=== PATIENT | female | born 1955 | race Caucasian/White ===

== ENCOUNTER 2019-05-03 01:37 | Outpatient (CLI) | payer BC, SELFPAY ==
--- NOTE | 2019-05-03 09:00 | DI.MAMMO_ITS ---
SYMPTOM/DIAGNOSIS: SCREENING, Z12.31 MAMMOGRAMS: Mammograms were interpreted according to the usual protocol including computer analysis with CAD system, tomosynthesis and C view imaging. Comparison with prior examinations. Breast density C. No suspicious masses or microcalcifications are seen. There is no definite evidence of malignancy. IMPRESSION: Negative mammogram. Routine screening is recommended. Category 1, breast density C. MQSA ASSESSMENT OF FINDINGS: Negative. Category 1. Patient will receive a letter notifying them of these results. Bi-RADS category C. The breasts are heterogeneously dense, which may obscure small masses.
== END 2019-05-03 01:57 ==
PROVIDERS: PCP Family Medicine; Visit Provider Nurse Practitioner Family
DX: Z12.31 Encounter for screening mammogram for malignant neoplasm of breast (principal)
CPT/HCPCS: 77063; 77067

== ENCOUNTER 2020-05-08 01:03 | Outpatient (CLI) | payer BC, SELFPAY ==
--- NOTE | 2020-05-08 15:00 | DI.MAMMO_ITS ---
EXAM: MAMMO SCREENING CLINICAL HISTORY: screening TECHNIQUE: Mammograms were interpreted according to the usual protocol including computer analysis w [facility] CAD system, tomosynthesis and C-view imaging. COMPARISON: 2010 through 2018 FINDINGS: The breasts are composed of heterogeneously dense fibroglandular densities, Breast Density category C . No suspicious masses or suspicious microcalcifications are seen. No skin thickening or abnormal axillary lymph nodes are seen. There has been no significant change from prior exams. IMPRESSION: BI-RADS Category 1: Negative mammogram. Yearly screening mammography is recommended. Breast density category C, heterogeneously dense tissue which decreases the sensitivity of the mammog chelle. The mammogram demonstrates the patient's breast tissue is dense. Dense breast tissue is very common a nd is not abnormal but dense breast tissue can make it harder to find cancer on a mammogram. Also, de nse breast tissue may increase breast cancer risk. This information about the result of the mammogram report was provided to the patient to raise their awareness. Use this report when you speak with the patient about their risks for breast cancer, which includes their family history. At that time, you may recommend additional screening tests (Ultrasound or MRI) as they might be useful based on their r isk. A negative radiographic report should not delay biopsy if a dominant or clinically suspicious mass is present. Up to ten percent of cancers are not identified on mammography. A negative report may reinforce clinical impression. Adenosis and dense breasts may obscure an underlying neoplasm. False positive reports average 6 to 10%.
== END 2020-05-08 01:23 ==
PROVIDERS: PCP Family Medicine; Visit Provider Nurse Practitioner Family
DX: Z12.31 Encounter for screening mammogram for malignant neoplasm of breast (principal)
CPT/HCPCS: 77063; 77067

== ENCOUNTER 2020-06-02 09:35 | Day surgery (SDC) | payer BC, SELFPAY ==
[2020-06-02 09:42] VITALS: BP 124/68; PULSE 59; RESP 18; TEMP 36.8; O2SAT 99
[2020-06-02] MEDS: Lactated Ringers 1,000 ML 80 ML IV (10:10)
--- NOTE | 2020-06-02 10:59 | W.PM.DSUDISC ---
Discharge Plan Disposition Patient Disposition: HOME Condition: Good Discharge Details Reason For Visit: Colonoscopy Attending Provider: Oralia Wright Primary Care Provider: Henrik Dupree Home Meds and New Rx's Prescriptions: Continued acetaminophen [Tylenol] 325 MG tablet 650 mg PO Q6H PRN RF: 0 calcium carbonate-vitamin D3 [Caltrate with Vitamin D3] 1 EACH tablet 1 ea PO DAILY RF: 0 CENTRUM SILVER TABLET 1 EACH tablet 1 ea PO DAILY RF: 0 citalopram 20 MG tablet 40 mg PO DAILY RF: 0 Cbd Oil 5 drp PO DAILY PRNRF: 0 Discharge Instructions Additional Instructions: Findings: One small polyp was biopsied. My office will contact you with biopsy results. Follow up: Plan for a colonoscopy in 5 years. Please call if you develop: fevers >101.5 Nausea or Vomiting Abdominal pain that is not transient DAY SURGERY UNIT POST COLONOSCOPY INSTRUCTIONS 1. Because there will be medication in your system for the next 24 hours, you may feel a little sleepy. Your coordination will be affected. Therefore: a. Do not drive or operate dangerous equipment for 24 hours. b. Do not drink alcohol beverages for 24 hours (not even beer). c. Plan to go home and rest for the day. 2. Generally there are no restrictions on your activity after a day or so has gone by, but you may feel a bit fatigued for a few days. 3 After you arrive home you may have a light meal and return to a normal diet as you can tolerate it without feeling sick to your stomach. 4. After surgery, you may feel pain or discomfort. This should be only transient, but if it persists please contact your doctor. 5. If there are any questions regarding the findings of your procedure, please feel free to contact your doctor. 6. If you are unable to contact your doctor with a problem, contact the hospital at [phone]. 7. Continue all your regular medications unless directed otherwise. I understand the above instructions and have no questions. Signature of Patient or Responsible Adult Escort Date/Time Name of Responsible Adult Escort Signature of Nurse Date/Time Activity:: Activity as Tolerated Diet:: As Tolerated Discharge Orders Discharge Orders: Discharge Order (Routine); Ordered 06/02/20 Ordered By: Oralia Wright DS: Diagnosis Discharge Diagnosis (1) Colon polyp: Status: Acute
--- NOTE | 2020-06-02 11:30 | BOWEL_PTH ---
PATIENT: Princess Da Silva LOC: [facility] U#:[id number] AGE/SX: 64/F ROOM: RE06/02/[address]: Oralia Wright MD : [id number] BED: DIS: 06/02/2020 SPEC #: [id number] RECD: 06/02/20 12:22 STATUS: CAITIE REQ #: [id number] FRAN: 06/02/20 11:[address]: Oralia Wright DEPT: Surgical Specimen RECD BY: Khushbu Delacruz ENTERED: 06/02/20 12:23 SP TYPE: Bowel OTHR DR: Henrik Dupree Tissues: 1 - BIOPSY BOWEL 2 - BIOPSY BOWEL Procedures: GROSS AND MICRO LEVEL 4 Comments: [id number]
--- NOTE | 2020-06-02 12:06 | W.COLOREPORT ---
Date of service: 06/02/20 Time of Service: 12:06 Colonoscopy Report Date of procedure: 06/02/20 Pre-op diagnosis general: History of polyps Post-op diagnosis procedure note: other (Ascending colon polyp, possible polyp at 20 cm) Procedure: Colonoscopy with cold forceps polypectomy and biopsy Surgeon: Oralia Wright Anesthesia proc note operative: MAC Indications: This patient had colon polyps in 2016 and presents for routine follow up. She is asymptomatic and has no FH colon cancer. Procedure Description: The patient was placed in the left [place] position. Propofol was titrated to sedation. Digital rectal examination revealed no abnormalities. The scope was advanced to the cecum without difficulty. The ileocecal valve and appendiceal orifice were clearly identified. The prep was good. The scope was slowly withdrawn with a diminuitive polyp removed from the ascending colon with the cold forceps. The ascending, transverse, descending colon were normal. In the distal sigmoid colon a thick fold vs polyp was identified. This had a hyperplastic appearance and was biopsies. The rectum was normal including on retroflexed view. The patient tolerated the procedure well and was stable to recovery. She was noted to have an episode of bradycardia during withdrawal of the scope which was attributed to vagal stimulation. Plan for colonoscopy in 5 years or sooner if symptoms indicate.
[2020-06-02 12:29] VITALS: BP 113/64; PULSE 55; RESP 16; TEMP 36.9; O2SAT 98
== END 2020-06-02 12:45 | disposition home or self-care (01) ==
PROVIDERS: PCP Family Medicine; Visit Provider Surgery
PROC: 0DJD8ZZ Inspection of Lower Intestinal Tract, Via Natural or Artificial Opening Endoscopic (ICD-10-PCS; CPT 45378; principal; 2020-06-02 12:15)
DX: Z12.11 Encounter for screening for malignant neoplasm of colon (principal); Z86.010 Personal history of colon polyps; D12.4 Benign neoplasm of descending colon; K63.5 Polyp of colon; R00.1 Bradycardia, unspecified
CPT/HCPCS: 45380; 88305; J2001

== ENCOUNTER → 2025-02-17 08:12 | Outpatient (BNVA) | payer MEDICARE, SELFPAY | PROVIDERS: PCP Nurse Practitioner Family; Referring Provider Nurse Practitioner Family; Visit Provider Student in an Organized Health Care Education/Training Program | DX: M17.12 Unilateral primary osteoarthritis, left knee (principal); M94.262 Chondromalacia, left knee; M25.462 Effusion, left knee; M23.92 Unspecified internal derangement of left knee | CPT/HCPCS: 20610; 99203; J1010 ==

== ENCOUNTER 2025-02-17 09:24 | Outpatient (REF) | payer MEDICARE, SELFPAY ==
[2025-02-17 09:56] LABS: Clarity Cloudy; Crystals (BF) No Crystals seen
[2025-02-17 10:01] LABS: Mononuclear Cells 5 %; Polynuclear Cells 95 %
== END 2025-02-17 09:25 | disposition home or self-care (01) ==
LOC: LBN 09:24
PROVIDERS: PCP Nurse Practitioner Family; Visit Provider Student in an Organized Health Care Education/Training Program
DX: M17.12 Unilateral primary osteoarthritis, left knee (principal); M25.562 Pain in left knee; M94.262 Chondromalacia, left knee; M25.462 Effusion, left knee; M23.92 Unspecified internal derangement of left knee
CPT/HCPCS: 87070; 87205; 89051; 89060

== ENCOUNTER 2025-03-30 12:10 | Outpatient (CLI) | payer MEDICARE, SELFPAY ==
[2025-03-30 12:27] LABS: ESR 10 mm/hr (0-30)
[2025-03-30 12:40] LABS: C-Reactive Protein 1.17 mg/dL (<or=0.5)
[2025-03-31 18:02] LABS: Rheumatoid Factor <8.6 IU/mL (<12.0)
[2025-04-01 09:27] LABS: Lyme Ab w Rflx to Lyme Confirm Negative (Negative)
[2025-04-01 13:30] LABS: ANA Interpretation Positive (Negative); ANA Titer Pattern 1:160 Homogeneous
[2025-04-03 15:00] LABS: Anaplasma phagocytophilum Negative (Negative); B. miyamotoi PCR Negative (Negative); Babesia divergens/MO-1 Negative (Negative); Babesia duncani Negative (Negative); Babesia microti Negative (Negative); Ehrlichia chaffeensis Negative (Negative); Ehrlichia ewingii/canis Negative (Negative); Ehrlichia muris eauclairensis Negative (Negative)
== END 2025-03-30 12:11 | disposition home or self-care (01) ==
LOC: LBO 12:10
PROVIDERS: PCP Nurse Practitioner Family; Visit Provider Student in an Organized Health Care Education/Training Program
DX: M25.462 Effusion, left knee (principal)
CPT/HCPCS: 36415; 85652; 87798; 86038; 86140; 86431; 86618

== ENCOUNTER → 2025-04-07 09:00 | Outpatient (BNVA) | payer MEDICARE, SELFPAY | PROVIDERS: PCP Nurse Practitioner Family; Referring Provider Nurse Practitioner Family; Visit Provider Student in an Organized Health Care Education/Training Program | DX: M23.92 Unspecified internal derangement of left knee (principal); M65.962 Unspecified synovitis and tenosynovitis, left lower leg; M25.462 Effusion, left knee | CPT/HCPCS: 20610; J1010 ==

== ENCOUNTER 2025-06-30 10:42 | Outpatient (CLI) | payer MEDICARE, SELFPAY ==
--- NOTE | 2025-06-30 10:30 | DI.RAD_ITS ---
Exam(s) XR KNEE LT 4V AP,LAT,ALYSSA,PAT EXAM: XR KNEE LT 4V AP,LAT,ALYSSA,PAT CLINICAL HISTORY: eval L knee pain/swelling. TECHNIQUE: 2D digital imaging was performed of the left knee. Four images were obtained. Merchant,AP, lateral and PA tunnel views were obtained. COMPARISON: MR MR KNEE LT WO CONTRAST from 12/15/2024 FINDINGS: BONES: No acute fracture is present. No bony destructive lesion is seen. There is an enthesophyte at the superior patella. JOINTS: There are small osteophytes in the posterior patella. There is a joint effusion present. No loose body. SOFT TISSUE: Normal. IMPRESSION: 1. There are mild degenerative changes of the left knee. 2. Small joint effusion. DATA REPOSITORY: RADIATION DOSE DELIVERED:
== END 2025-06-30 10:43 | disposition home or self-care (01) ==
LOC: DIORS 10:42
PROVIDERS: PCP Nurse Practitioner Family; Referring Provider Nurse Practitioner Family; Visit Provider Student in an Organized Health Care Education/Training Program
DX: M23.92 Unspecified internal derangement of left knee (principal); M65.962 Unspecified synovitis and tenosynovitis, left lower leg; M94.262 Chondromalacia, left knee
CPT/HCPCS: 99214; 73564